=== PATIENT | female | born 1965 | race Caucasian/White ===

== ENCOUNTER → 2016-11-15 16:33 | Outpatient (CLI) | payer MEDICARE ==
[2015-08-18 09:38] VITALS: BMI 30.6
[~2016-11-15 16:33] MED LIST: BAYER CHEWABLE81 MG PO; BENADRYL25 MG; BENADRYL25 MG PO; CO Q-10200 MG PO; COLACE100 MG PO; COREG 3.1253.125 MG PO; EFFIENT10 MG PO; KRILL OIL 1,001 EAC1 PO; LASIX40 MG PO; LISINOPRIL10 MG PO; LOVENOX60 MG/0.6 SC; MUCINEX600 MG PO; NITROSTAT0.4 MG; NITROSTAT0.4 MG SL; NORVASC10 MG PO; NORVASC2.5 MG PO; OXYCODONE HCL10 MG PO; PLAVIX75 MG PO; RANEXA1000 MG PO; RED YEAST RICE600 MG PO; RESTORIL15 MG PO; ROXICODONE15 MG PO; SENOKOT-S TABLE1 TAB PO; SOMA350 MG PO; SONATA10 MG PO; XANAX0.5 MG PO; ZOCOR40 MG PO
== END | disposition home or self-care (01) ==
LOC: D.MAMMO 08:15
DX: Z12.31 Encounter for screening mammogram for malignant neoplasm of breast (principal)

== ENCOUNTER → 2016-12-20 17:05 | Outpatient (CLI) | payer MEDICARE ==
[2015-08-18 09:38] VITALS: BMI 30.6
== END | disposition home or self-care (01) ==
LOC: D.MAMMO 13:00
DX: R92.8 Other abnormal and inconclusive findings on diagnostic imaging of breast (principal); N28.1 Cyst of kidney, acquired

== ENCOUNTER → 2017-06-28 14:52 | Outpatient (CLI) | payer MEDICARE ==
[2015-08-18 09:38] VITALS: BMI 30.6
== END | disposition home or self-care (01) ==
LOC: D.MAMMO 10:30
DX: R92.8 Other abnormal and inconclusive findings on diagnostic imaging of breast (principal)

== ENCOUNTER → 2017-09-01 10:13 | Outpatient (CLI) | payer MEDICARE, BC ==
[2015-08-18 09:38] VITALS: BMI 30.6
== END | disposition home or self-care (01) ==
LOC: D.US 10:13
DX: N60.02 Solitary cyst of left breast (principal); R92.8 Other abnormal and inconclusive findings on diagnostic imaging of breast

== ENCOUNTER 2018-03-05 08:01 | Outpatient (CLI) | payer MEDICARE, BC ==
[~2018-03-05] VITALS: Ht 154.9 cm; Wt 63.6 kg
--- NOTE | ~2018-03-05 | OP ---
PATIENT NAME: WILMAN WEI MEDICAL RECORD: [id number] :67 LOCATION:D.CAT ADMISSION DATE: SURGEON: JOSÉ MANUEL NARANJO MD DATE OF OPERATION: 03/05/2018 PROCEDURES: 1. Laser atherectomy LAD. 2. PTCA, LAD. 3. PTCA LAD diagonal. 4. Left heart catheterization. 5. Selective coronary angiography. 6. Left ventriculogram. 7. CHAHAL angiography. INDICATION: Angina and coronary artery disease. PROCEDURE IN DETAIL: After informed consent was obtained and after a detailed description of risks, benefits as well as alternative therapies, the patient elected to proceed with angiogram and angioplasty. The right femoral area was prepped and draped in normal sterile fashion. Right femoral artery was cannulated via modified Seldinger technique with placement of 6-Kyrgyz sheath. All catheters exchanged through this sheath. FINDINGS: Left ventriculogram was performed in standard 30-degree SERRATO view, reveals good cardiac wall motion throughout all segments. Overall ejection fraction estimated 60%. SELECTIVE CORONARY ANGIOGRAPHY: 1. Left main is with no significant angiographic disease. 2. Left anterior descending has multiple previously placed stents with up to 90% in-stent restenosis. The diagonal as well has 90% in-stent restenosis. Initially there was no competitive flow from a graft down the distal LAD. 3. Left circumflex has moderate irregularities, but no flow-limiting stenosis. 4. The right coronary artery has previously placed stents. These are widely patent with no significant restenosis. No disease elsewise. LASER ATHERECTOMY, PTCA OF THE LAD: Laser atherectomy was performed with 0.9 mm catheter, multiple passes were made to 80/40. We ballooned the LAD diagonal with a 2.25 balloon and stented the distal LAD with a 2.25 x 15 mm Lei stent. Result was 0% residual stenosis. OVERALL IMPRESSION: Successful percutaneous transluminal coronary angioplasty stent of the left anterior descending and laser atherectomy going from multiple areas of 90% initial stenosis on the LAD and diagonal to 0% residual stenosis. TRANSINT:[id number] Voice Confirmation ID: [id number] DOCUMENT ID: [id number] OPERATIVE REPORT [id number] WILMAN WEI JOSÉ MANUEL NARANJO MD at 1005 CC: [id number] DICTATION DATE: 03/05/18 1031 CLINICAL TRIAL DATA MANAGER: 03/05/18 1254 DEP CLI 03/05/18 [facility] [address] [facility] [place] [address]
--- NOTE | ~2018-03-05 | HEMODYNAMI ---
PATIENT:WILMAN WEI MEDICAL RECORD: [id number] : 67 LOCATION:[facility] ADMISSION DATE: 03/05/18 Generatedon:03/05/201810:36 Patient name: WILMAN EWI Patient #: [id number] SSN: : 1965 Date of study: 03/05/2018 Page: Of Hemodynamic Procedure Report Patient Data Patient Demographics Procedure consent was obtained First Name: WILMAN Gender: Female Last Name: SANJUANA : 1965 Middle Initial: T Age: 53 year(s) Patient #: [id number] Race: Additional ID: [id number] Contact details Address: [address] [place] [address] State: [place] City: [place] Zip code: [address] Past Medical History History of disease Date Diagnosis Comments CAD Hypertension Allergies Allergen Reaction Date Comments Reported Demerol 09/16/2014 Other allergy Head ->headache 09/16/2014 Isosorbide Other allergy 03/05/2018 DEMEROL, ISOSORBIDE Admission Admission Data Admission Date: 03/05/2018 Admission Time: 8:01 Lab Results Lab Result Date: 03/05/2018 Lab Result Time: 0:00 Biochemistry Name Units Result Min Max BUN mg/dl 22 --(----)-* 7 18 Creatinine mg/dl 1.2 --(---*)-- 0.6 1.3 CBC Name Units Result Min Max Hemoglobin g/dl 13.9 --(*---)-- 13.5 17.5 Procedure Procedure Types Cath Procedure Diagnostic Procedure LHC LHC w/Coronaries w/Grafts Sedation Charges Moderate Sedation up to 30 minutes PCI Procedure PTCA PTCA Additional Coronary Atherectomy Atherectomy w/Stent Coronary Initial Procedure Description Procedure Date Procedure Date: 03/05/2018 Procedure Start Time: 9:58 Procedure End Time: 10:33 Procedure Staff Name Function Idris Pérez MD Performing Physician Aurora Mann RT Monitor Diane Rivers RT Scrub Ramirez Boyd RN Nurse Procedure Data Cath Procedure Fluoroscopy Diagnostic fluoroscopy Total fluoroscopy Time: 7.9 time: 7.9 min min Diagnostic fluoroscopy Total fluoroscopy dose: 782 dose: 782 mGy mGy Contrast Material Contrast Material Type Amount (ml) Isovue 370 138 Entry Location Entry Primary Successful Side Size Upsize Upsize Entry Closure Succes sful Closure Location (Fr) 1 (Fr) 2 (Fr) Remarks Device Remarks Femoral Right 5 Fr 6 Fr Exoseal artery Short Estimated blood loss: 10 ml Diagnostic catheters Device Type Used For End Catheter Placement MULTIPACK Pigtail 5 Fr Procedure catheter MULTIPACK JL 4.0 5Fr Procedure catheter MULTIPACK 3DRC 5Fr Procedure catheter MULTIPACK 3DRC 5Fr Procedure catheter Procedure Complications No complications Procedure Medications Medication Administration Route Dosage Oxygen NC 2 l/min Lidocaine 1% added to field 20 Heparin Flush Bag added to field 2 bags (1000units/500ml NS) 0.9% NaCl I.V. 100 ml/hr Versed I.V. 2 mg Fentanyl I.V. 100 mcg Versed I.V. 2 mg Fentanyl I.V. 100 mcg Versed I.V. 1 mg Fentanyl I.V. 50 mcg Heparin Bolus I.V. 5000 units Versed I.V. 1 mg Nitroglycerin IC/IA I.C. 200 mcg Fentanyl I.V. 50 mcg Hemodynamics Rest HGB: 13.9 (g/dl) Heart Rate: 56 (bpm) Snapshots Pre Cath Intra NCS Post Cath Vital Signs Time Heart Resp SPO2 etCO2 NIBP (mmHg) Rhythm Pain Sedation Rate (ipm) (%) (mmHg) Status Level (bpm) 9:34:07 52 17 100 18.1 141/82(120) NSR 0 (11) 10(A) , No pain 9:38:52 62 17 100 17.3 144/70(88) NSR 0 (11) 10(A) , No pain 9:43:32 55 24 99 17.3 113/62(97) NSR 0 (11) 10(A) , No pain 9:48:11 58 16 99 17.3 106/65(88) NSR 0 (11) 10(A) , No pain 9:52:47 60 15 100 18 121/62(108) NSR 0 (11) 10(A) , No pain 9:57:28 59 15 98 18.8 103/63(88) NSR 0 (11) 10(A) , No pain 10:02:05 72 14 97 17.3 108/62(97) NSR 0 (11) 9(A) , No pain 10:06:41 66 13 98 17.3 115/62(92) NSR 0 (11) 9(A) , No pain 10:11:15 77 14 97 17.3 98/60(75) NSR 0 (11) 9(A) , No pain 10:15:48 80 15 97 18.1 106/69(86) NSR 0 (11) 9(A) , No pain 10:20:22 88 13 94 13.5 102/72(94) NSR 0 (11) 9(A) , No pain 10:24:57 83 13 96 12.8 115/65(88) NSR 0 (11) 9(A) , No pain 10:29:35 80 14 97 11.3 103/59(90) NSR 0 (11) 10(A) , No pain Medications Time Medication Route Dose Verified Delivered Reason Notes Effectiveness by by 9:45:15 Oxygen NC 2 Idris Idris used for l/min Beto Pérez MD procedure 9:45:24 Lidocaine 1% added 20ml Idris Idris for local to vial Beto Pérez MD anesthetic field 9:45:30 Heparin Flush added 2 Idris Idris used for Bag to bags Beto Pérez MD procedure (1000units/500ml field NS) 9:45:38 0.9% NaCl I.V. 100 Idris Buffie Per physician ml/hr Beto Boyd RN 9:54:44 Versed I.V. 2 mg Idris Buffie for sedation Beto Boyd RN 9:54:50 Fentanyl I.V. 100 Idris Buffie for sedation mcg Beto Boyd RN 10:01:50 Versed I.V. 2 mg Idris Buffie for sedation Beto Boyd RN 10:01:53 Fentanyl I.V. 100 Idris Buffie for sedation mcg Beto Boyd RN 10:06:27 Versed I.V. 1 mg Idris Buffie for sedation Beto Boyd RN 10:06:32 Fentanyl I.V. 50 Idris Buffie for sedation mcg Beto Boyd RN 10:07:35 Heparin Bolus I.V. 5000 Idris Guzmán for verifi ed units Beto Boyd RN anticoagulation with dr pérez 10:10:58 Versed I.V. 1 mg Idris Guzmán for sedation Beto Boyd RN 10:18:09 Nitroglycerin I.C. 200 Idris Steinberg for IC/IA mcg Beto sparks 10:21:00 Fentanyl I.V. 50 Idris Guzmán for sedation mcg Beto Boyd RN Procedure Log Time Note 9:18:11 Aurora Mann RT(R) sent for patient. Start room use. 9:19:21 Signed procedure consent form obtained from patient. 9:19:22 Time tracking: Regular hours (M-F 7:00 - 5:00) 9:19:26 Plan of Care:Hemodynamics will remain stable., Cardiac rhythm will remain stable., Comfort level will be maintained., Respiratory function will remain adequate., Patient/ family verbilizes understanding of procedure., Procedure tolerated without complication., Recovers from procedure without complications.. 9:24:23 Lab Result : BUN 22 mg/dl 9:24:23 Lab Result : Creatinine 1.2 mg/dl 9:24:23 Lab Result : Hemoglobin 13.9 g/dl 9:24:37 Patient allergic to Other allergyDEMEROL, ISOSORBIDE 9:32:58 Patient received from Pre/Post Procedure Room to CCL 1 Alert and oriented. Tansferred to table in Supine position. 9:32:59 Warm blankets applied, and itzel hugger turned on for patient comfort. 9:32:59 Correct patient and procedure confirmed by team. 9:33:00 ECG and BP/O2 sat monitors applied to patient. 9:33:06 Vital chart was started 9:33:19 Baseline sample Acquired. 9:33:23 Rhythm: sinus bradycardia 9:33:25 Full Disclosure recording started 9:33:34 H&P Date Dictated: 02/13/2018 Within 30 days and on chart., H&P Addendum completed by physician on day of procedure. (MUST COMPLETE FOR ALL OUTPATIENTS). 9:33:35 Pre-procedure instructions explained to patient. 9:33:36 Pre-op teaching completed and patient verbalized understanding. 9:33:37 Family in patients room. 9:33:39 Patient NPO since Midnight. 9:33:41 Is the patient allergic to Iodine/contrast media? No. 9:33:42 Is patient on blood thinner?Yes 9:33:51 PRELOADED PLAVIX 9:33:53 Patient diabetic? No. 9:34:34 Patient not . Patient has had hysterectomy. 9:34:37 Previous problem with sedation/anesthesia? No ? 9:34:38 Snore? Yes 9:34:39 Sleep apnea? No 9:34:40 Deviated septum? No 9:34:41 Opens mouth fully? Yes 9:34:41 Sticks out tongue? Yes 9:34:43 Airway obstruction? No ? 9:34:46 Dentures? Yes IN TIGHT 9:34:49 Pre procedure: right dorsailis pedis pulse 2+ Normal; easily identifiable; not easily obliterated 9:34:51 Patient pain scale 0/10 ?. 9:35:21 IV patent on arrival in left forearm with 0.9% NaCl at KVO. 9:35:24 Lab results completed and on chart. 9:35:26 Right groin area was prepped with chlora-prep and draped in sterile fashion 9:35:27 Alarms reviewed by R. N. 9:35:27 Sharps counted by scrub and verified by R.N. 9:35:31 Use device set Femoral Dx 9:35:32 ACIST Syringe (63849) opened to sterile field. 9:35:33 Bag Decanter (2002S) opened to sterile field. 9:35:34 ACIST Hand Control (22769) opened to sterile field. 9:35:34 ACIST Manifold (82712) opened to sterile field. 9:35:35 Tegaderm 4 x 4 (1626W) opened to sterile field. 9:35:36 Medline Cath Pack ([id number]) opened to sterile field. 9:35:36 DIAGNOSTIC WIRE .035 260cm J wire (665230) opened to sterile field. 9:35:38 DIAGNOSTIC Multipack 5Fr catheter set (WD6725) opened to sterile field. 9:35:39 SHEATH Prelude 5Fr 0.035 (NGJ-1F-58-035) opened to sterile field. 9:45:15 Oxygen 2 l/min NC was administered by Idris Pérez MD; used for procedure; 9:45:24 Lidocaine 1% 20ml vial added to field was administered by Idris Pérez MD; for local anesthetic; 9:45:30 Heparin Flush Bag (1000units/500ml NS) 2 bags added to field was administered by Idris Pérez MD; used for procedure; 9:45:38 0.9% NaCl 100 ml/hr I.V. was administered by Ramirez Boyd RN; Per physician; 9:46:45 Zero performed for pressure channel P1 9:48:44 --------ALL STOP TIME OUT------ 9:48:45 Final Timeout: patient, procedure, and site verified with staff and physician. All members of the team are in agreement. 9:48:48 Right groin site verified by team. 9:48:51 Physical assessment completed. ASA score P 2 - A patient with mild systemic disease as per Idris Pérez MD. 9:48:54 Sedation plan: IV Moderate Sedation Medication:Versed, Fentanyl 9:49:04 Procedure type changed to Cath procedure, Diagnostic procedure, LHC, LHC w/Coronaries w/Grafts, Sedation Charges, Moderate Sedation up to 30 minutes, PCI procedure, PTCA, PTCA Additional, Coronary Atherectomy, Atherectomy w/Stent Coronary Initial 9:54:44 Versed 2 mg I.V. was administered by Ramirez Boyd RN; for sedation; 9:54:50 Fentanyl 100 mcg I.V. was administered by Ramirez Boyd RN; for sedation; 9:56:55 Procedure started. 9:58:45 Local anesthetic to right femoral artery with Lidocaine 1% by Idris Pérez MD.INITIAL ACCESS ONLY 9:59:26 A 5 Fr sheath was inserted into the Right Femoral artery 9:59:39 A MULTIPACK Pigtail 5 Fr catheter was advanced over the wire and used for Procedure. 9:59:58 LV gram done using SERRATO 10:00:00 Injector settings: Ml/sec: 10, Volume: 20, 10:00:23 EF : 55 % 10:00:26 Catheter removed. 10:00:36 A MULTIPACK JL 4.0 5Fr catheter was advanced over the wire and used for Procedure. 10:01:08 LCA angiography performed. 10:01:44 Catheter removed. 10:01:50 Versed 2 mg I.V. was administered by Ramirez Boyd RN; for sedation; 10:01:50 A MULTIPACK 3DRC 5Fr catheter was advanced over the wire and used for Procedure. 10:01:53 Fentanyl 100 mcg I.V. was administered by Ramirez Boyd RN; for sedation; 10:02:50 RCA angiography performed. 10:02:52 Catheter removed. 10:03:11 SHEATH 6FR [place] (DKY850) opened to sterile field. 10:04:51 Sheath upsized to a 6 Fr Short. 10:04:56 INFLATOR Merit BasixCompak (II1096) opened to sterile field. 10:04:59 CHOICE PT Extra Support 182cm wire ([id number]) opened to sterile field. 10:05:07 GUIDE 6FR EBU 3.5 catheter ([id number]) opened to sterile field. 10:05:15 LASER ELCA 0.9 Rx atherectomy catheter (377248) opened to sterile field. 10:06:27 Versed 1 mg I.V. was administered by Ramirez Boyd RN; for sedation; 10:06:32 Fentanyl 50 mcg I.V. was administered by Ramirez Boyd RN; for sedation; 10:07:35 Heparin Bolus 5000 units I.V. was administered by Ramirez Boyd RN; for anticoagulation; verified with dr pérez 10:10:09 6 Fr EBU 3.5 guide catheter was inserted over the wire 10:10:37 CHOICE ES 182 wire advanced. 10:10:58 Versed 1 mg I.V. was administered by Ramirez Boyd RN; for sedation; 10:11:09 Wire advanced across lesion. 10:11:56 Laser pass to mLAD with Fluence of 80 and Rate of 40. 10:14:30 Laser total pulses delivered: 54125 10:14:35 Laser total treatment time: 1 minutes 10 seconds 10:15:59 Laser catheter removed. 10:17:27 Inflate balloon Inflation number: 1 A EUPHORA 2.5 x 30 Balloon ([id number]) was prepped and advanced across the Mid LAD, then inflated to 11 NESHA for 0:11 (min:sec). 10:17:46 Inflation number: 2 The EUPHORA 2.5 x 30 Balloon ([id number]) was reinflated across the Mid LAD, to 21 NESHA for 0:10 (min:sec). 10:18:09 Nitroglycerin IC/IA 200 mcg I.C. was administered by Idris Pérez MD; for vasodilation; 10:19:13 Balloon removed over the wire. 10:20:31 Place stent Inflation Number: 1 A GHULAM RX 2.25 x 15 stent ([id number]) was prepped and advanced across the Dist LAD. The stent was deployed at 15 NESHA for 0:10 (min:sec). 10:21:00 Fentanyl 50 mcg I.V. was administered by Ramirez Boyd RN; for sedation; 10::55 Stent catheter was removed intact over wire. 10:22:28 GRAPHIX 182cm guide wire ([id number]) opened to sterile field. 10:22:57 Wire removed. 10:23:06 GRAPHIX wire advanced. 10:23:07 Wire advanced across lesion. 10:24:00 Inflation number: 1 The stent balloon was then re-inflated across the 1st Diag to 17 NESHA for 0:10 (min:sec). 10:24:34 Inflation number: 2 The stent balloon was then re-inflated across the 1st Diag to 17 NESHA for 0:10 (min:sec). 10:24:48 Wire removed. 10:24:49 Stent catheter was removed intact over wire. 10:25:08 EXOSEAL 6Fr (EX600) opened to sterile field. 10:25:36 A MULTIPACK 3DRC 5Fr catheter was advanced over the wire and used for Procedure. 10:26:23 CHAHAL to LAD angiography performed. 10:26:26 Catheter removed. 10:26:44 Sheath removed intact; hemostasis achieved with Exoseal to the Right Femoral artery. 10:27:11 Procedure ended.(Physican Out) 10::22 Fluoroscopy time 07.90 minutes. 10::28 Fluoroscopy dose: 782 mGy 10::28 Flurop Dose total: 782 10:29:32 Contrast amount:Isovue 370 138ml. 10:29:33 Sharps counted by scrub and verified by R.N. 10:29:38 Post-op/insertion site Right Femoral artery dressed using a 4 x 4 and Tegaderm. 10:29:42 Post right femoral artery:stable, soft, clean and dry 10:29:46 Post-procedure physical assessment completed. ASA score P 2 - A patient with mild systemic disease as per Idris Pérez MD. 10:29:50 Post procedure rhythm: sinus rhythm 10:29:52 Estimated blood loss: 10 ml 10:29:53 Post procedure instruction explained to patient.Patient verbalizes understanding. 10:29:53 Patient needs reinforcement of post procedure teaching. 10:32:48 Procedure and supply charges have been captured, reviewed, submitted and are correct. 10:32:51 Procedure Complication : No complications 10:32:58 Vital chart was stopped 10:32:58 See physician's report for complete and final results. 10:33:05 Report given to Pre/Post Procedure Room. 10:33:07 Patient transfered to Pre/Post Procedure Room with Bed. 10:33:09 Procedure ended. 10:33:09 Full Disclosure recording stopped 10:33:12 End room use (Document Last) 10:33:12 End room use (Document Last) Intervention Summary Intervention Notes Time ActionType Lesion and Equipment Used Action# Pressure Duration Attributes 10:17:27 Inflate Mid LAD EUPHORA 2.5 x 1 11 00:11 balloon 30 Balloon ([id number]) 10:17:46 Reinflate Mid LAD EUPHORA 2.5 x 2 21 00:10 balloon 30 Balloon ([id number]) 10:20:31 Place stent Dist LAD GHULAM RX 2.25 x 1 15 00:10 15 stent ([id number]) 10:24:00 Reinflate 1st Diag GHULAM RX 2.25 x 1 17 00:10 stent 15 stent balloon ([id number]) 10:24:34 Reinflate 1st Diag GHULAM RX 2.25 x 2 17 00:10 stent 15 stent balloon ([id number]) Device Usage Item Name Manufacture Quantity Catalog Number Hospital Part Current Minimal Lot# / Charge Number Stock Stock Serial# Code ACIST Syringe Acist 1 89717 040188 873068 391217 20 (86577) Medical [employer] Inc Bag Decanter Microtek 1 2001S 416013 64207 264709 5 () Medical Inc. ACIST Hand Acist 1 83696 324229 874030 734377 5 Control (34621) [employer] Systems Inc ACIST Manifold Acist 1 74167 234709 832235 807073 5 (08934) Medical Systems Inc Tegaderm 4 x 4 3M 1 1626W 490648 935968 863398 5 (1626W) Medline Cath Cardinal 1 [id number] 611502 90043 657367 5 Pack Health ([id number]) DIAGNOSTIC WIRE St Chang 1 440902 365950 870627 184176 30 .035 260cm J wire (677987) DIAGNOSTIC Cardinal 1 SF0508 749337 42203 536097 30 Multipack 5Fr Health catheter set (GU5285) SHEATH Prelude Merit 1 DPJ-7W-04-035 646302 353030 003108 5 5Fr 0.035 Medical (CON-4B-94-035) MULTIPACK Cardinal 1 458535 5 Pigtail 5 Fr Health catheter MULTIPACK JL Cardinal 1 878579 5 4.0 5Fr Health catheter MULTIPACK 3DRC Cardinal 2 812031 5 5Fr catheter Health SHEATH 6FR Terumo 1 ACL827 866989 318966 516058 40 [place] (JOE497) INFLATOR Merit Merit 1 QN6901 498912 246493 377092 15 [facility] Medical (XG4624) CHOICE PT Extra Folcroft 1 [id number] 422442 502633 792922 5 Support 182cm Scientific wire ([id number]) GUIDE 6FR EBU Medtronic 1 [id number] 928067 26123 089327 3 3.5 catheter ([id number]) LASER ELCA 0.9 Marianne 1 110-004 076568 928422 044296 5 Rx atherectomy Healthcare catheter (282390) (793122) EUPHORA 2.5 x Medtronic 1 [id number] 503033 094285 132596 5 [id number] 30 Balloon ([id number]) GHUALM RX 2.25 x Medtronic 1 [id number] 807116 6723037 426039 5 [id number] 15 stent ([id number]) GRAPHIX 182cm Folcroft 1 [id number] 300953 472922 703352 5 guide wire Scientific ([id number]) EXOSEAL 6Fr Cardinal 1 EX600 403091 004293 563038 10 (EX600) Health Signature Audit Sperry Stage Time Signature Unsigned Intra-Procedure 03/05/2018 Aurora Mann 10:36:16 AM RT(R) Signatures Monitor : Aurora Mann Signature : RT Date : Time : [address] [place] [address]
[2018-03-05] MEDS ORDERED: AMBIEN10 MG PO (08:32)
[2018-03-05] MEDS ORDERED: ROBAXIN-750750 MG PO (08:32)
[2018-03-05] MEDS ORDERED: LIPITOR80 MG PO (08:33)
[2018-03-05] MEDS ORDERED: PLAVIX75 MG PO (08:34)
[2018-03-05 08:41] VITALS: BP 146/83; Ht 154.9 cm; Wt 63.6 kg
[2018-03-05 08:50] LABS: BASOPHILS 0.5 % (0-2); EOSINOPHILS 3.9 % (0-7); HEMATOCRIT 42.6 % (36.0-48.0); HEMOGLOBIN 13.9 g/dL (12-16); IMMATURE GRANULOCYTES 0.3 % (0-5); LYMPHOCYTES 31.5 % (15-50); MCH 30.2 pg (26.0-34.0); MCHC 32.6 g/dL (31.0-37.0); MCV 92.4 fL (80.0-100.0); MEAN PLATELET VOLUME 10.1 fL (7.4-10.4); MONOCYTES 7.2 % (2-11); NEUTROPHILS 56.6 % (40-80); RBC 4.61 10x6/uL (4.00-5.40); RDW 13.8 % (11.5-14.5); WBC 9.8 10x3/uL (4.8-10.8)
[2018-03-05 08:52] LABS: PLATELET COUNT 360 10x3/uL (130-400)
[2018-03-05 09:03] LABS: ANION GAP 15.2 mmol/L (8-16); CALCIUM 9.4 mg/dL (8.5-10.1); CARBON DIOXIDE 24.5 mmol/L (21.0-32.0); CREATININE - SERUM 1.2 mg/dL (0.6-1.3); POTASSIUM - SERUM 4.7 mmol/L (3.5-5.1)
== END 2018-03-05 14:30 | disposition home or self-care (01) ==
LOC: D.CATH 08:01
PROVIDERS: Internal Medicine Interventional Cardiology
DX: I25.119 Atherosclerotic heart disease of native coronary artery with unspecified angina pectoris (principal); Z95.1 Presence of aortocoronary bypass graft; Z01.812 Encounter for preprocedural laboratory examination
CPT/HCPCS: 92921; 93459; C9602

== ENCOUNTER 2019-03-01 08:00 | Outpatient (CLI) | payer MEDICARE, BC ==
[2018-03-05 08:41] VITALS: BMI 26.5
[~2019-03-01 08:00] MED LIST changes: +AMBIEN10 MG PO; +LIPITOR80 MG PO; +ROBAXIN-750750 MG PO
== END 2019-03-01 23:59 | disposition home or self-care (01) ==
LOC: D.MAMMO 08:00
PROVIDERS: ATTEND Family Medicine
DX: Z12.31 Encounter for screening mammogram for malignant neoplasm of breast (principal)

== ENCOUNTER 2019-04-08 08:00 | Outpatient (CLI) | payer MEDICARE, BC ==
[2018-03-05 08:41] VITALS: BMI 26.5
== END 2019-04-08 23:59 | disposition home or self-care (01) ==
LOC: D.MAMMO 08:00
PROVIDERS: ATTEND Family Medicine
DX: R92.8 Other abnormal and inconclusive findings on diagnostic imaging of breast (principal)

== ENCOUNTER → 2019-04-18 08:40 | Outpatient (CLI) | payer MEDICARE, BC ==
[2018-03-05 08:41] VITALS: BMI 26.5
--- NOTE | 2019-04-23 09:53 | ST ---
PATIENT:WILMAN WEI MEDICAL RECORD: [id number] SEX: F LOCATION:[facility] ORDER #: ADMISSION DATE: 04/18/19 AGE OF PATIENT: 54 REFERRING PHYSICIAN: INTERPRETING PHYSICIAN: JOSÉ MANUEL NARANJO MD DATE OF SERVICE: 04/18/2019 PROCEDURE: Nuclear stress test. INDICATIONS: Angina, coronary artery disease, shortness of breath, hypertension. She was exercised on standard Pierre protocol for 5 minutes 40 seconds achieving greater than 85% max target heart rate response with 33 mCi of sestamibi injected at peak stress, 11 mCi used previously for rest images. FINDINGS: Gated SPECT reveals preserved ejection fraction at 66% with decreased thickening and brightening throughout the anterior segments. SPECT imaging: Cardiolite was used as myocardial perfusion agent. There is a fixed perfusion defect anteroapically from previous anteroapical myocardial infarction; however, there is no evidence of reversibility. The remaining segments have homogeneous uptake at rest and stress. OVERALL IMPRESSION: This is minimally abnormal nuclear stress test only showing previous anteroapical myocardial infarction, no ongoing ischemia, and ejection fraction is preserved at greater than 60%. In this patient with ongoing symptomatology, the current scan is stable. Continue treatment of coronary artery disease and cardiac risk factors. TRANSINT:[id number] Voice Confirmation ID: [id number] DOCUMENT ID: [id number] JOSÉ MANUEL NARANJO MD at 0953 CC: SENAIT BALL [id number] DICTATION DATE: 04/19/19 1333 DYE MACHINE TENDER: 04/20/19 0115 DEP CLI 04/18/[address] [address]
== END | disposition home or self-care (01) ==
LOC: D.HCCARDIO 08:40
PROVIDERS: ATTEND Internal Medicine Interventional Cardiology
DX: I25.10 Atherosclerotic heart disease of native coronary artery without angina pectoris (principal)

== ENCOUNTER → 2020-03-10 09:12 | Outpatient (CLI) | payer MEDICARE, BC ==
[2018-03-05 08:41] VITALS: BMI 26.5
== END | disposition home or self-care (01) ==
LOC: D.HCCARDIO 09:00
PROVIDERS: ATTEND Internal Medicine Cardiovascular Disease
DX: I25.119 Atherosclerotic heart disease of native coronary artery with unspecified angina pectoris (principal)

== ENCOUNTER → 2020-06-08 10:04 | Outpatient (CLI) | payer MEDICARE, BC ==
[2018-03-05 08:41] VITALS: BMI 26.5
== END | disposition home or self-care (01) ==
LOC: D.MAMMO 10:04
PROVIDERS: ATTEND Family Medicine
DX: Z12.31 Encounter for screening mammogram for malignant neoplasm of breast (principal)